=== PATIENT | male | born 1985 | race Caucasian/White ===

== ENCOUNTER 2017-03-02 13:08 | Emergency (ER) | payer BC ==
[2017-03-02] MEDS ORDERED: Diphtheria,Pertussis(Acell),Tetanus Vaccine 0.5 ML SDV IM ONE (14:22)
[2017-03-02 14:54] VITALS: BP 144/82
--- NOTE | 2017-03-03 12:25 | ER ---
DATE SEEN: 03/02/2017 TIME SEEN: The patient was seen at 1320 hours. CHIEF COMPLAINT: Hand laceration. HISTORY OF PRESENT ILLNESS: This 31-year-old, man was home last night approximately 2330 hours, was cutting something and his left-dominant hand was holding the knife and cut his right thenar eminence, shoved the knife through his hand. It is sore this morning. He works at a [employer]. Did not go to work today. PAST MEDICAL HISTORY: Negative for any serious illnesses. MEDICATIONS: None. ALLERGIES: None. HOSPITALIZATIONS: None. SOCIAL HISTORY: The patient is a smoker. REVIEW OF SYSTEMS: Negative. PHYSICAL EXAMINATION: VITAL SIGNS: Blood pressure 149/100, heart rate 100, respirations 18, and oxygen saturation 99%. GENERAL: A pleasant man, in minimal distress. HEENT: PERRLA intact. Pharynx without abnormality. LUNGS: Clear to auscultation without rales, rhonchi, or wheezes. HEART: S1, S2. No murmur. No irregular rate and rhythm. DERMIS: Laceration right palmar thenar eminence, appears to be almost between the 4th and 5th metacarpals. Sensation is intact. Capillary refill is intact to fingers. Range of motion of fingers is intact. No swelling. No erythema noted. There is a slight break in the dermis. There is no laceration penetration to the dorsum of his hand. ASSESSMENT: 1. A 2-cm laceration with subcutaneous fat noted. 2. No sign of infection. 3. It was a clean kitchen knife, so probably did not get soiled extensively. 4. He is at risk for infection. No compromised neurovascular structures or range of motion of fingers. PLAN: Keflex 500 mg q.i.d. Tdap with pertussis 0.5 mL subcu. Elevate his hand. Wear a glove. Use bacitracin. Apply dressing on a daily basis. Keep clean. Follow up with doctor in a week or earlier if any sign of redness, swelling, increased pain, or linear angiitis. /[id number] MILENA/MODL
== END 2017-03-02 14:40 | disposition home or self-care (01) ==
LOC: FB.ED 13:08
DX: S61.411A Laceration without foreign body of right hand, initial encounter (principal); W26.0XXA Contact with knife, initial encounter; Y93.89 Activity, other specified
CPT/HCPCS: 90471; 90715; 99283